=== PATIENT | male | born 1990 | race Native Hawaiian/Other Pacific Islander ===

== ENCOUNTER 2016-06-12 10:05 | Outpatient (CLI) | payer OTHER ==
[~2016-06-12 10:05] MED LIST: ALBUTEROL2 MG/5 ML PO; LORA10TA3 PO; PROM25TA52 PO; TRIM800T12 PO
== END 2016-06-12 10:12 | disposition short-term general hospital (02) ==
LOC: AMB 10:05
DX: R10.84 Generalized abdominal pain (principal)
CPT/HCPCS: A0425; A0429

== ENCOUNTER 2016-06-12 10:14 | Emergency (ER) | payer OTHER ==
[~2016-06-12] VITALS: Ht 149.9 cm; Wt 34.0 kg
[2016-06-12 10:26] VITALS: BP 127/87; TEMP 97.5
[2016-06-12 10:54] LABS: PLATELET COUNT 255 K/uL (142-355)
[2016-06-12 11:06] LABS: POTASSIUM 3.6 mmol/L (3.6-5.2); SODIUM 134 mmol/L (136-145)
== END 2016-06-12 14:20 | disposition home or self-care (01) ==
LOC: ED 10:14
PROVIDERS: Emergency Medicine
DX: N20.1 Calculus of ureter (principal); N23 Unspecified renal colic
CPT/HCPCS: 80053; 81000; 85027; 96361; 96374; 99284; J1885

== ENCOUNTER → 2016-07-17 21:44 | Outpatient (CLI) | payer OTHER | END | disposition home or self-care (01) | LOC: AMB 21:44 | DX: R22.0 Localized swelling, mass and lump, head (principal) ==

== ENCOUNTER 2019-01-04 17:43 | Emergency (ER) | payer OTHER ==
[~2019-01-04] VITALS: Ht 144.8 cm; Wt 36.3 kg
[2019-01-04 18:23] LABS: PLATELET COUNT 262 K/uL (142-355)
[2019-01-04 18:25] LABS: POTASSIUM 3.2 mmol/L (3.6-5.2)
[2019-01-05 03:45] VITALS: BP 117/74; TEMP 98.9
== END 2019-01-05 03:46 | disposition other institution (70) ==
LOC: ED 17:43
PROVIDERS: Emergency Medicine Emergency Medical Services
DX: R45.851 Suicidal ideations (principal); E87.6 Hypokalemia
CPT/HCPCS: 80053; 80307; 80320; 80329; 81000; 85027; 93005; 99285